=== PATIENT | female | born 1970 | race Caucasian/White ===

== ENCOUNTER → 2016-11-14 | Outpatient (CLI) | payer BC ==
[~2016-11-14] MED LIST: MULT-506 PO
--- NOTE | 2016-11-15 13:19 | MAMMOGRAPHY REPORT ---
BILATERAL DIGITAL SCREENING MAMMOGRAM TOMOSYNTHESIS WITH CAD: 11/14/2016 CLINICAL HISTORY: Routine screening. Patient has no complaints. TECHNIQUE: Breast tomosynthesis in addition to standard 2D mammography was performed. Current study was also evaluated with a Computer Aided Detection (CAD) system. COMPARISON: Comparison is made to exams dated: 11/12/2015 mammogram, 11/11/2014 mammogram, 11/07/2013 mammogram, 11/06/2012 mammogram, 11/03/2011 mammogram, and 11/01/2010 mammogram - [facility]. BREAST COMPOSITION: The tissue of both breasts is heterogeneously dense, which may obscure small ma sses. FINDINGS: No suspicious mass, architectural distortion or cluster of microcalcifications is seen. IMPRESSION: ACR BI-RADS CATEGORY 1: NEGATIVE There is no mammographic evidence of malignancy. A 1 year screening mammogram is recommended. The p atient will receive written notification of the results. Approximately 10% of breast cancers are not detected with mammography. A negative mammographic repor t should not delay biopsy if a clinically suggestive mass is present. Agueda sherman/kevin:11/14/2016 17:09:37 Offshore Wind Turbine Technician: Esther SHAH(Savanna)(Nilson), [facility] letter sent: Normal 1/2 BI-RADS Code: ACR BI-RADS Category 1: Negative
== END | disposition home or self-care (01) ==
LOC: C.MAMM 13:46
PROVIDERS: ATTEND Obstetrics & Gynecology
DX: Z12.31 Encounter for screening mammogram for malignant neoplasm of breast (principal)

== ENCOUNTER → 2017-01-11 | Outpatient (CLI) | payer BC | END | disposition home or self-care (01) | LOC: C.PAPS 13:40 | PROVIDERS: ATTEND Obstetrics & Gynecology | DX: Z01.419 Encounter for gynecological examination (general) (routine) without abnormal findings (principal) ==

== ENCOUNTER → 2017-06-20 | Outpatient (CLI) | payer BC ==
--- NOTE | 2017-06-20 14:58 | DIAGNOSTIC IMAGING REPORT ---
RIGHT WRIST ULTRASOUND CLINICAL HISTORY: R22.30 Lump of wrist COMPARISON STUDY: Right wrist radiograph 05/31/2017. FINDINGS: Within the deep soft tissues abutting the bony structures there is a 13 x 11 x 7 mm septated cyst at the dorsal lateral wrist. This corresponds the patient's palpable abnormality. This favors a ganglion cyst. IMPRESSION: A 13 x 11 x 7 mm septated cyst within the dorsal lateral wrist which favors a ganglion cyst. Electronically signed by: Darron Burger M.D. 06/20/2017 2:57 PM Dictated Date/Time: 06/20/2017 2:55 PM
== END | disposition home or self-care (01) ==
LOC: C.ULTR 14:37
PROVIDERS: ATTEND Physician Assistant Medical
DX: R22.30 Localized swelling, mass and lump, unspecified upper limb (principal)

== ENCOUNTER → 2017-07-28 | Outpatient (CLI) | payer BC ==
[~2017-07-28] MED LIST changes: +BIOT1TAB5 PO; +MELO7.5T6 PO; +OMEG10007 PO
--- NOTE | 2017-07-28 11:43 | DIAGNOSTIC IMAGING REPORT ---
L KNEE 3 VIEWS CLINICAL HISTORY: Bilateral knee pain. COMPARISON: None FINDINGS: Alignment of the left knee is anatomic. No fracture or joint effusion is present. Joint spaces are preserved. There is minimal osteophytosis of the medial patellofemoral compartments of the left knee. IMPRESSION: 1. 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 2. No acute fracture or joint effusion of the left knee. Electronically signed by: Edilberto Jackson M.D. 07/28/2017 11:42 AM Dictated Date/Time: 07/28/2017 11:41 AM
--- NOTE | 2017-07-28 11:43 | DIAGNOSTIC IMAGING REPORT ---
R KNEE 3 VIEWS CLINICAL HISTORY: Bilateral knee pain. COMPARISON: None FINDINGS: Alignment of the right knee is anatomic. No fracture or joint effusion is evident. There is no suspicious osseous lesion. Joint spaces are preserved. There is minimal osteophytosis within the medial patellofemoral compartments. IMPRESSION: 1. Minimal osteoarthritis within the medial and patellofemoral compartments of the right knee. 2. No fracture or joint effusion of the right knee. Electronically signed by: Edilberto Jackson M.D. 07/28/2017 11:41 AM Dictated Date/Time: 07/28/2017 11:40 AM
== END | disposition home or self-care (01) ==
LOC: C.RAD1850 11:25
PROVIDERS: ATTEND Internal Medicine
DX: M25.569 Pain in unspecified knee (principal)

== ENCOUNTER → 2017-10-06 | Outpatient (CLI) | payer OTHER ==
[~2017-10-06] MED LIST changes: -BIOT1TAB5 PO; -MELO7.5T6 PO; -OMEG10007 PO
--- NOTE | 2017-10-06 15:14 | DIAGNOSTIC IMAGING REPORT ---
R UPPER EXT JOINT WITHOUT CLINICAL HISTORY: 47 years-old Female with RT WRIST CYST. The right wrist pain. COMPARISON: Right wrist radiographs 05/31/2017 TECHNIQUE: Multiplanar, multi sequence MRI of the right wrist was performed without intravenous contrast. FINDINGS: Exam is mildly motion degraded. EXTRINSIC LIGAMENTS: The volar extrinsic ligaments including the twawq-etvhnt-xrpafpiv and euxjf-jywk-bpjmjvetwa ligaments are grossly intact. INTRINSIC LIGAMENTS: The scapholunate and lunotriquetral ligaments are intact and unremarkable in appearance. No evidence of scapholunate or lunotriquetral interval widening. TFCC: There is a thin zone perforation of the articular disc, nicely seen on image 22 of series 6. The meniscal homologue, the extensor carpi ulnaris tendon, the volar and dorsal distal radioulnar ligaments and the ulnolunate and ulnotriquetral ligaments. BONE MARROW: Mild to moderate subcortical edema-like marrow signal is noted involving the proximal lunate with central subcortical cystic changes. Mild edema-like marrow signal involves the triquetrum and proximal pole of the scaphoid as well. No fracture, edema, or focal marrow replacement process. JOINT SPACES: Mild joint space narrowing with marginal spurring and subcortical cystic changes involve the first carpal metacarpal joint. No focal articular cartilage loss or osteochondral lesion. CARPAL TUNNEL: The contents of the carpal tunnel are unremarkable in appearance without evidence of carpal tunnel syndrome. The flexor tendons and median nerve are unremarkable in appearance. The flexor retinaculum is unremarkable. The ulnar nerve appears unremarkable. EXTENSOR TENDONS: There is trace fluid surrounding the extensor pollicis longus tendon compatible with tenosynovitis nicely seen on image 10 of series 9. The remaining extensor tendons are unremarkable, without tenosynovitis, tear or degeneration. No evidence of dislocation or subluxation of the extensor tendons. SOFT TISSUES: There is a lobulated T2 hyperintense T1 intermediate signal circumscribed benign-appearing lesion about the dorsal lateral wrist superficial to the proximal carpal row measuring 2.8 x 0.6 x 1.4 cm in greatest dimension. This displaces the adjacent first, second and third extensor compartments dorsally. IMPRESSION: 1. Lobulated T2 hyperintense lesion about the dorsal lateral wrist superficial to the proximal carpal row measures up to 2.8 cm displacing the adjacent first, second and third extensor compartments dorsally. This suggests a ganglion. 2. Mild tenosynovitis of the extensor pollicis longus tendon without tear. 3. Thin zone perforation of the articular disc of the TFCC. 4. Mild bone marrow edema and subcortical cystic changes of the proximal carpal row likely degenerative in nature. Mild osteoarthritis of the first carpometacarpal joint. The above report was generated using voice recognition software. It may contain grammatical, syntax or spelling errors. Electronically signed by: Hakan Meehan M.D. 10/06/2017 3:13 PM Dictated Date/Time: 10/06/2017 2:57 PM
== END | disposition home or self-care (01) ==
LOC: C.MRI 13:39
PROVIDERS: ATTEND Orthopaedic Surgery
DX: M67.431 Ganglion, right wrist (principal)

== ENCOUNTER → 2017-11-16 | Outpatient (CLI) | payer OTHER ==
[~2017-11-16] MED LIST changes: +BIOT1TAB5 PO; +MELO7.5T6 PO; +OMEG10007 PO
--- NOTE | 2017-11-20 08:07 | MAMMOGRAPHY REPORT ---
BILATERAL DIGITAL SCREENING MAMMOGRAM TOMOSYNTHESIS WITH CAD: 11/16/2017 CLINICAL HISTORY: Routine screening. Patient has no complaints. TECHNIQUE: Breast tomosynthesis in addition to standard 2D mammography was performed. Current study was also evaluated with a Computer Aided Detection (CAD) system. COMPARISON: Comparison is made to exams dated: 11/14/2016 mammogram, 11/12/2015 mammogram, 11/11/2014 m ammogram, 11/07/2013 mammogram, 11/06/2012 mammogram - [facility], and 10/29/2007. BREAST COMPOSITION: The tissue of both breasts is heterogeneously dense, which may obscure small mas ses. FINDINGS: No suspicious masses, calcifications, or areas of architectural distortion are noted in ei ther breast. There has been no significant interval change compared to prior exams. IMPRESSION: ACR BI-RADS CATEGORY 1: NEGATIVE There is no mammographic evidence of malignancy. A 1 year screening mammogram is recommended. The pa tient will receive written notification of the results. Approximately 10% of breast cancers are not detected with mammography. A negative mammographic report should not delay biopsy if a clinically suggestive mass is present. Ritika Valle M.D. ah/:11/16/2017 15:48:51 Film Tests Checker: Alexandria SHAH(Savanna)(M), [facility] letter sent: Normal 1/2 BI-RADS Code: ACR BI-RADS Category 1: Negative
== END | disposition home or self-care (01) ==
LOC: C.MAMM 14:33
PROVIDERS: ATTEND Obstetrics & Gynecology
DX: Z12.31 Encounter for screening mammogram for malignant neoplasm of breast (principal)

== ENCOUNTER → 2017-12-04 | Day surgery (SDC) | payer OTHER ==
[2017-10-17 11:37] VITALS: Ht 157.5 cm; Wt 79.5 kg
[~2017-12-04] VITALS: Ht 157.5 cm; Wt 79.5 kg
[~2017-12-04] MED LIST changes: +ATROPINE SULFATE 0.1 MG/ML 5ML SYR IV PRN; +BUPIVACAINE/EPINEPHRINE 0.5% MPF 1:200,000 30 ML VIAL ONE; +CEFAZOLIN 2000MG IV PUSH 15 ML IV SCH; +DEXAMETHASONE SOD INJ 4 MG/ML VIAL ONE; +EpHEDrine SULFATE INJ 50 MG/ML AMP IV PRN; +EpINEphrine INJ 1MG/ML AMP 1 MG/ML AMP ONE; +FENTANYL CITRATE INJ 50 MCG/1 ML 2 ML VIAL IV PRN; +FENTANYL CITRATE INJ 50 MCG/1 ML 2 ML VIAL ONE; +LACTATED RINGER'S 1000ML 1,000 ML IV SCH; +LIDOCAINE HCL 2% 2 ML VIAL (20MG/ML) ONE; +METOCLOPRAMIDE HCL INJ 5 MG/ML 2 ML VIAL IV PRN; +MIDAZOLAM HCL 1 MG/ML 2ML VIAL ONE; +ONDANSETRON INJ 2 MG/ML 2 ML VIAL IV PRN; +ONDANSETRON INJ 2 MG/ML 2 ML VIAL ONE; +OXYCODONE/ACETAMINOPHEN 5-325 TAB PO PRN; +PROPOFOL IV EMULSION 10 MG/ML 20 ML VIAL ONE; +ROPIVACAINE 0.5% 5 MG/ML 30 ML VIAL ONE; +SODIUM CHLORIDE 0.9% 1000ML 1,000 ML IV SCH
--- NOTE | 2017-12-04 06:42 | History & Physical Bridge - SC ---
H&P Re-Evaluation Bridge Note: I have examined the patient, reviewed the History & Physical and in the interval since the performance of the History & Physical I have noted the following changes of clinical significance: No changes noted
--- NOTE | 2017-12-04 08:00 | [facility] Post Operative Brief Note ---
Immediate Operative Summary Operative Date December 04, 2017. Pre-Operative Diagnosis Right Wrist Dorsal Ganglion Cyst Post-Operative Diagnosis Same Procedure(s) Performed Right Wrist Dorsal Ganglion Cyst Excision Surgeon Dr. Cui Supercharger Repair Supervisor Surgeon(s) Caleb France PA-C Estimated Blood Loss Minimal Findings Consistent with Post-Op Diagnosis Specimens A. Right Wrist Dorsal Ganglion Cyst Drains None Anesthesia Type General Regional Complication(s) none Disposition Accompanied Pt To Recovery: no Disposition: Recovery Room / PACU
--- NOTE | 2017-12-04 08:07 | [facility] Operative Report ---
Operative Report Operative Date December 04, 2017. Pre-Operative Diagnosis Right Wrist Dorsal Ganglion Cyst Post-Operative Diagnosis Same Procedure(s) Performed Right Wrist Dorsal Ganglion Cyst Excision Surgeon Dr. Cui Senior Corporate Strategy Manager Surgeon(s) Caleb France PA-C Estimated Blood Loss Minimal Specimens A. Right Wrist Dorsal Ganglion Cyst Drains None Anesthesia Type General Regional Complication(s) none Disposition no Recovery Room / PACU Description of Procedure I was present during entire case. Please see Dr. Cui procedure note for specifics. I attest to the content of the Intraoperative Record and any orders documented therein. Any exceptions are noted below.
--- NOTE | 2017-12-04 08:12 | Discharge Instructions ---
Discharge Instructions Date of Service December 04, 2017. Admission Reason for Admission: Right Wrist Dorsal Ganglion Cyst Discharge Discharge Diagnosis / Problem: Right wrist doral ganglion cyst Discharge Goals Goal(s): Decrease discomfort, Improve function, Increase independence Activity Recommendations Activity Limitations: as noted below Lifting Limitations: no more than 10 pounds (Until after 2 wk post op follow up ) Exercise/Sports Limitations: until after follow-up appointment May Resume Sexual Activity: when tolerated Shower/Bathe: tomorrow, keep incision dry Driving or Machine Use: resume 3 days after discharge Weightbearing Status: Right partial (No lifting greater than 10 lbs with Right hand/arm until after surgical follow up) . Instructions / Follow-Up Instructions / Follow-Up Post-operative Instructions Dear Patient and Family/Friends, Before you are discharged from the hospital, it is important to know what to expect when you get home after surgery. To that end, we have created this sheet of discharge instructions which covers many commonly asked questions. Make sure you go through this sheet in its entirety with your nurse before you are discharged. Please note that we will go over the specifics of your surgery and recovery when you return for your first post-operative visit. Sincerely, Dr. Cui Pain Expect to be in a fair amount of pain after surgery. Remember, our goal is not to eliminate your pain, but to make it tolerable. It is a good idea to stay ahead of your pain by taking the medications you were prescribed once you get home. Typically, the pain starts improving 3-7 days after surgery. You should start weaning off the narcotic pain medication (oxycodone, hydrocodone, hydromorphone, morphine) as soon as your pain improves. Please call our office if your pain is not adequately controlled. Ice Ice your operative site at least 5 times a day for 15-30 minutes at a time. Make sure you have a thin cloth between the ice or cooling unit and your skin to prevent aleman bite. This is especially important if you received a nerve block. Continue icing your operative site for the first 5-7 days after surgery , then as needed. Diet/Nausea/Vomiting Start by drinking clear liquids and eating crackers. If you can tolerate this, then you may resume your normal diet. If you feel nauseated or vomit, take Zofran/ondansetron (if prescribed). Please call our office if you have intractable nausea or vomiting, or, if after hours, you may go to the Emergency Room for help. Constipation Constipation is a common side effect of narcotic pain medication. If you have not had a bowel movement within 2 days after surgery, we recommend purchasing an over the counter laxative such as Milk of Magnesia, Dulcolax, or Miralax from a local pharmacy, and taking it as instructed. Call our clinic if any questions. Slings and Braces If you were placed in a sling or brace, it must be worn at all times, including sleep. You may remove your sling or brace for physical therapy, home exercises , and showering. The length of time you will be in your brace and range of motion restrictions depends on what surgery you had; these details will be reviewed at your first post-operative appointment. Nerve block The anesthesia team sometimes places a nerve block to help with post-operative pain control. This results in significant numbness and inability to move the extremity. The nerve block usually wears off in 8-12 hours, but sometimes can last up to 24 hours. Please call our office if you are still unable to move your extremity after 24 hours, unless you received a pain pump to take home. Nerve blocks typically wear off quickly, so start taking pain medication as soon as you start feeling soreness near your surgical site. Weight bearing and Range of Motion. Do not bear any weight through your operative extremity immediately after surgery. If you had upper extremity surgery, do not lift anything with that arm. If you are in a knee brace, keep it locked in place until your follow-up. We will discuss your weight bearing, range of motion, and lifting restrictions in detail at your first post-operative appointment. Continuous Passive Motion (CPM) Machine If you were prescribed a CPM machine, it will start after your first post- operative appointment, at which time we will give you instructions on the range of motion settings and duration of treatment Physical therapy You will be given a prescription for physical therapy or occupational therapy at your first post-operative appointment. Typically, patients start therapy within 1 week of surgery Wound care and showering We will inspect your wound at your first post-operative visit, and may do a dressing change at that time. Most patients will be in a water-proof dressing that is removed 14 days after surgery. It is normal to see some dried blood on the dressing. Do not remove your dressing, paper strips or sutures yourself unless you are given permission. Showering is allowed the day after surgery. Do not scrub or remove any dressings. The wound should not be submerged underwater (i.e. in a bathtub or pool) until 4 weeks after surgery CAROL stockings If you were given white stockings, these are to be worn at all times except to shower (on both legs) for the first 2 weeks after surgery. Driving You may not drive while taking narcotic pain medication or while in a cast, splint, sling or brace. You, the patient, need to make the final determination about when you are safe to drive, however, the earliest you may consider driving after surgery is below: Hand/Wrist/Elbow Surgery: 3 days Shoulder Surgery: 2 weeks Hip,/Knee/Ankle Surgery: 4 weeks Fracture repair: 6 weeks Return to Work Your return to work depends on what surgery was done and what type of work you do. Please bring any paperwork your employer needs completed to your first post -operative visit. Also, bring a description of your job duties, as this helps us to understand what risks you may face at work. Travel Avoid long distance travel (greater than 1 hour) in airplanes and cars for the first 6 weeks after surgery. If you must travel, you need to have a Doppler ultrasound done before you travel to rule out a blood clot in your legs. Follow-up You should have a follow-up appointment already scheduled 1-2 days after surgery. If not, please contact our office to make this appointment before you leave the hospital. When to call the office It is normal to have swelling and bruising in the limb that was operated on. This will improve with time. It is also normal to have fevers for the first 2 days after surgery. Reasons you should call your doctor include: Uncontrolled pain; Nausea, vomiting, or constipation that does not improve with medication; Fevers over 101.5, chills, sweats; Drainage or bleeding from the wound; Foul odor; Spreading areas of redness; Any other concerns Current Hospital Diet Patient's current hospital diet: Discharge Diet Recommended Diet: Regular Diet Procedures Procedures Performed: Right Wrist Dorsal Ganglion Cyst Excision Pending Studies Studies pending at discharge: no List of pending studies: Specimen sent for pathology Medical Emergencies . Who to Call and When: Medical Emergencies: If at any time you feel your situation is an emergency, please call 911 immediately. . Non-Emergent Contact Non-Emergency issues call your: Primary Care Provider Call Non-Emergent contact if: you have a fever, temperature is above 101.5, your pain is not controlled, your pain is worsening, wound has increased drainage, you have any medication questions . "Provider Documentation" section prepared by John France. . [place] Drug Monitoring Program Search Results: patient reviewed within database, no issues identified, see additional documentation
--- NOTE | 2017-12-04 09:29 | Anesthesia Progress Nt - [facility] ---
Anesthesia Post Op Note Date & Time December 04, 2017 at 09:29 Vital Signs Pain Intensity: 0 Vital Signs Past 12 Hours Date Time Temp Pulse Resp B/P (MAP) Pulse Ox O2 Delivery O2 Flow Rate FiO2 12/04/17 09:15 36.4 71 16 136/82 (100) 98 Room Air 12/04/17 08:51 67 19 100 12/04/17 08:51 68 19 12/04/17 08:50 61 13 113/80 98 12/04/17 08:50 63 13 12/04/17 08:49 65 15 12/04/17 08:49 64 15 99 12/04/17 08:47 117/79 12/04/17 08:45 36.2 60 20 117/79 95 Room Air 12/04/17 08:45 148/101 12/04/17 08:44 64 14 12/04/17 08:44 66 14 99 12/04/17 08:40 161/108 12/04/17 08:39 67 14 99 12/04/17 08:39 66 14 12/04/17 08:38 77 12/04/17 08:38 77 98 12/04/17 08:35 145/95 12/04/17 08:33 57 12 100 12/04/17 08:33 58 12 12/04/17 08:30 158/91 12/04/17 08:28 76 16 12/04/17 08:28 76 16 100 12/04/17 08:27 61 15 12/04/17 08:27 60 15 100 12/04/17 08:25 139/98 12/04/17 08:22 63 13 12/04/17 08:22 63 13 100 12/04/17 08:20 130/89 12/04/17 08:17 63 12 100 12/04/17 08:17 64 12 12/04/17 08:16 75 15 125/87 100 12/04/17 08:16 73 15 12/04/17 08:11 70 11 100 12/04/17 08:11 72 11 12/04/17 08:10 104/80 12/04/17 08:07 118/74 12/04/17 08:07 36.6 74 16 118/74 98 Mask 8 12/04/17 07:11 0 12/04/17 07:10 0 12/04/17 07:05 70 5/7/18 07:05 117 10 132/94 99 12/04/17 07:01 157/108 12/04/17 07:00 90 20 98 12/04/17 07:00 83 12/04/17 06:55 73 0 12/04/17 06:50 78 12/04/17 06:50 77 0 96 12/04/17 06:45 79 14 94 12/04/17 06:45 79 14 12/04/17 06:40 77 12/04/17 06:40 77 96 12/04/17 06:22 36.6 71 16 139/77 (97) 96 Room Air Notes Mental Status: alert / awake / arousable, participated in evaluation Pt Amnestic to Procedure: Yes Nausea / Vomiting: adequately controlled Pain: adequately controlled Airway Patency, RR, SpO2: stable & adequate BP & HR: stable & adequate Hydration State: stable & adequate Anesthetic Complications: no major complications apparent
[2017-12-04 09:35] VITALS: BP 122/84; PULSE 74; O2SAT 97
--- NOTE | 2017-12-04 10:51 | OPERATIVE REPORT ---
DATE OF OPERATION: 12/04/2017 PREOPERATIVE DIAGNOSIS: Right dorsal ganglion cyst. POSTOPERATIVE DIAGNOSIS: Same. OPERATION PERFORMED: Right wrist dorsal ganglion cyst excision. SURGEON: Alonzo Cui MD ELECTRIC METER INSTALLER: Caleb France PA-C ESTIMATED BLOOD LOSS: Minimal. SPECIMENS: Right dorsal ganglion cyst. COMPLICATIONS: None. INDICATIONS: Ms. 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 She has undergone extensive conservative management with splinting rest, anti-inflammatories and others which have failed to relieve her symptoms. MRI was obtained confirming the diagnosis as well as revealing the extent of the ganglion cyst. I had a long discussion with her about the risks and benefits of surgery, alternatives to surgery and expected outcomes. After reviewing all these, she elected to proceed with surgery. All questions were answered. Informed consent was signed. OPERATIVE FINDINGS: There was a large ganglion cyst beneath the 2nd, 3rd and edge of the fourth dorsal compartment tendons, which was scarred into the capsule and surrounding tissues. The cyst was freed up and its stalk was excised at the base of the scapholunate ligament. Specimen had the gross appearance of a ganglion cyst and was sent for permanent section. DESCRIPTION OF THE OPERATION: The patient was identified in the preoperative holding area where her surgical site was marked. She was given a supraclavicular block by anesthesia and brought back to the main operating room where she was placed on the operating room table and general anesthesia was administered. All bony prominences were padded. Perioperative antibiotics were administered. She was prepped and draped in the normal sterile fashion. Prior to incision, a multidisciplinary timeout was called. All in the room are in agreement. We began by exsanguinating the limb with an Esmarch bandage. The tourniquet was inflated to 250 mmHg. A 3 cm long transverse incision was made directly overlying the ganglion cyst just distal to the radiocarpal joint. We dissected down through the subcutaneous tissues, identifying the superficial radial nerve and protecting it throughout the case. The extensor pollicis longus tendon was first identified and dissected out and retracted proximally. The second and fourth dorsal compartment tendons were then identified. Next, the radial most aspect of the cyst was identified on the radial aspect of the second compartment tendons. We dissected around this radial margin, taking great care to avoid the nearby radial artery and associated veins. The cyst was then dissected off the capsule to which it was scarred, moving in an ulnar direction. Then utilizing multiple windows in between the extensor compartment tendons, we were able to methodically dissect the cyst off of the dorsal wrist capsule until its stalk was identified communicating with the wrist joint at the scapholunate ligament. Here, the cyst was amputated including a small square of wrist capsule. The cyst was then sent for permanent section. Bipolar cautery was used to cauterize the wrist capsule at the site of the stalk insertion. Meticulous hemostasis was achieved. The wound was irrigated with copious amounts of normal saline. It was closed with interrupted 4-0 nylon sutures. Five mL of 0.5% Marcaine with epinephrine was then injected in the subcutaneous tissues for additional postoperative pain control. A sterile dressing was applied. The patient was awoken from anesthesia and transferred to the recovery room in stable condition. POSTOPERATIVE COURSE: The patient will be discharged home from the recovery room. She will start immediate active range of motion exercises for her wrist to prevent stiffness. She will have her sutures removed at 2 weeks. No DVT prophylaxis is indicated for the small upper extremity joint surgery. I attest to the content of the Intraoperative Record and any orders documented therein. Any exception s are noted below.
== END | disposition home or self-care (01) ==
LOC: X.SURG 06:08
PROVIDERS: ATTEND Orthopaedic Surgery
DX: M67.431 Ganglion, right wrist (principal); E66.9 Obesity, unspecified; Z68.32 Body mass index [BMI] 32.0-32.9, adult